=== PATIENT | male | born 1955 | race Caucasian/White ===

== ENCOUNTER → 2022-09-14 | Outpatient (CLI) | payer BC ==
--- NOTE | 2022-09-16 09:38 | MR ---
EXAMINATION TYPE: MR shoulder RT wo con DATE OF EXAM: 09/14/2022 8:52 PM COMPARISON: NONE HISTORY: RT SHOULDER/ARM PAIN AND WEAKNESS X 2 MONTHS TECHNIQUE: Multiplanar multispin echo imaging of the right shoulder was performed. FINDINGS: Rotator cuff : There is thickening and heterogeneity of the supraspinatus tendon with undersurface an d intrasubstance partial tear is seen. No evidence for full-thickness tear. There is also increased s ignal noted at the critical zone compatible with partial intrasubstance tear. There is increased sign al at the musculotendinous junction of the subscapularis. Correlate for strain. Bursa: No bursal effusion or thickening is seen. Musculature: There is no muscular tear, contusion, or atrophy. Acromioclavicular joint : Moderate AC joint arthropathy resulting in a degree of impingement. Small s ubacromial spur. Osseous structures : There are no fractures or regions of abnormal bone marrow signal intensity. Long biceps tendon : The biceps tendon is normally situated within the bicipital groove. No complete or partial biceps tendon tear is present. Glenohumeral Joint fluid : There is no glenohumeral joint effusion. Cartilage and Bone : No focal hyaline cartilage defects are noted. No Hill-Sachs, reverse Hill-Sachs, or bony Bankart lesions are seen. Labrum : There are no SLAP or soft tissue Bankart lesions. No paralabral cysts are seen. OTHER FINDINGS : Mild cystic degenerative change greater humeral tuberosity. IMPRESSION: 1. Chronic tendinopathy supraspinatus tendon with areas of intrasubstance and undersurface partial te ars. No evidence for full-thickness tear. 2.There is increased signal at the musculotendinous junction of the subscapularis. Correlate for stra in.
== END | disposition home or self-care (01) ==
LOC: RADMRIMAIN 19:34
PROVIDERS: ATTEND Orthopaedic Surgery
DX: M75.111 Incomplete rotator cuff tear or rupture of right shoulder, not specified as traumatic (principal)

== ENCOUNTER → 2023-12-26 | Outpatient (CLI) | payer MEDICARE, BC ==
--- NOTE | 2023-12-28 12:49 | MR ---
EXAMINATION TYPE: MR shoulder LT wo con DATE OF EXAM: 12/26/2023 COMPARISON: None HISTORY: left shoulder pain TECHNIQUE: Multiplanar, multisequence imaging of the left shoulder is performed without contrast. FINDINGS: There is moderate osteoarthritic change of the AC joints and no significant degeneration of the gleno humeral joint. There is diffuse abnormal signal intensity within the infraspinatus muscle at the musculotendinous ju nction consistent with intrasubstance tearing but no retraction. There is a tiny rim rent tear of the supraspinatus tendon and mild diffuse abnormal signal intensity in the more proximal aspect of the t endon consistent with tendinosis or partial tearing. The subscapularis tendon is intact. The biceps tendon is normal in signal intensity and position within the bicipital groove but there is a tear at the insertion of the biceps anchor on the superior aspect of the labrum consistent with a SLAP injury. There is abnormal signal intensity within the medial glenohumeral ligament and anterior cartilaginous labrum consistent with tears. There is mild subdeltoid bursitis. IMPRESSION: 1. Rotator cuff tears involving the infraspinatus and supraspinatus tendons without retraction. 2. SLAP injury of the superior labrum. 3. Tears of the anterior cartilaginous labrum and middle glenohumeral ligament. 4. Moderate osteoarthritic degeneration of the AC joint [facility], , 12/28/2023 12:47 PM
== END | disposition home or self-care (01) ==
LOC: RADMRIMAIN 19:00
PROVIDERS: ATTEND Orthopaedic Surgery
DX: M25.512 Pain in left shoulder

== ENCOUNTER → 2024-01-08 | Outpatient (CLI) | payer MEDICARE, BC ==
[2024-01-08 21:03] LABS: Aspergillus fumagatus IgE <0.10 kU/L; Birch IgE <0.10 kU/L; Cat Epith & Dander IgE <0.10 kU/L; Cladosporian herbarum IgE <0.10 kU/L; Clam IgE <0.10 kU/L; Cockroach IgE <0.10 kU/L; Codfish IgE <0.10 kU/L; Dermato. farinae IgE <0.10 kU/L; Dog Dander IgE 0.26 kU/L; Egg White IgE <0.10 kU/L; Elm IgE <0.10 kU/L; Maple (Box Elder) IgE <0.10 kU/L; Oak IgE <0.10 kU/L; Peanut IgE <0.10 kU/L; Ragweed,Common IgE <0.10 kU/L; Red Top (Bentgrass) IgE <0.10 kU/L; Scallop IgE <0.10 kU/L; Shrimp IgE <0.10 kU/L; Soybean IgE <0.10 kU/L; Walnut IgE (Food) <0.10 kU/L
== END | disposition home or self-care (01) ==
LOC: LABWHC1 14:25
PROVIDERS: ATTEND Internal Medicine Critical Care Medicine
DX: J45.50 Severe persistent asthma, uncomplicated (principal)
CPT/HCPCS: 36415; 82785; 85008; 86003

== ENCOUNTER → 2024-01-26 | Outpatient (CLI) | payer MEDICARE, BC ==
[2024-01-26 15:00] LABS: Basophils # (A) 0.04 X 10*3/uL (0.00-0.10); Basophils % (A) 0.4 %; Eosinophils # (A) 0.26 X 10*3/uL (0.04-0.35); Eosinophils % (A) 2.9 %; HCT 45.7 % (39.6-50.0); HGB 15.2 g/dL (13.0-17.0); Lymphocytes # (A) 1.85 X 10*3/uL (0.90-5.00); Lymphocytes % (A) 20.5 %; MCHC 33.3 g/dL (32.0-37.0); MCV 93.1 FL (80.0-97.0); Mean Platelet Volume 11.4 FL (9.5-12.2); Monocytes # (A) 0.81 X 10*3/uL (0.20-1.00); NRBC Per 100 WBC 0 X 10*3/uL (0.00-0.01); Neutrophils # (A) 6.03 X 10*3/uL (1.80-7.70); Neutrophils % (A) 66.6 %; Platelet Count 225 X 10*3/uL (140-440); RBC 4.91 X 10*6/uL (4.40-5.60); RDW 13.7 % (11.5-14.5); WBC 9.04 X 10*3/uL (4.50-10.00)
[2024-01-26 16:21] LABS: Anion Gap 9.7 mmol/L (4.00-12.00); Carbon Dioxide 24.3 mmol/L (21.6-31.8); Potassium 4.5 mmol/L (3.5-5.5)
== END | disposition home or self-care (01) ==
LOC: LABPAT 08:08
PROVIDERS: ATTEND Orthopaedic Surgery
DX: Z01.818 Encounter for other preprocedural examination (principal); M75.42 Impingement syndrome of left shoulder
CPT/HCPCS: 80051; 85025; 93005

== ENCOUNTER 2024-02-08 07:35 | Day surgery (SDC) | payer MEDICARE, BC ==
--- NOTE | 2024-02-08 00:53 | HP ---
HISTORY AND PHYSICAL DATE OF SURGERY: 02/08/2024. HISTORY OF PRESENT ILLNESS: Joon Cervantes is a 68-year-old gentleman seen with progressive left shoulder pain. We discussed options regarding treatment. He elected to proceed with left shoulder arthroscopy. Consent regarding the procedure was obtained. PAST MEDICAL HISTORY: Hypertension, hyperlipidemia, asthma. PAST SURGICAL HISTORY: Sinus surgery. DAILY MEDICATIONS: 1. Loratadine. 2. Simvastatin. 3. Singulair. 4. Tylenol. ALLERGIES: Aspirin, ibuprofen, Levaquin, neomycin, Zithromax. SOCIAL HISTORY: Denies tobacco use. PHYSICAL EVALUATION OF THE LEFT SHOULDER: Flexion is 160 degrees. Abduction is 130 degrees. External rotation is 30 degrees with weakness. He has tenderness along the anterolateral acromion and bicipital groove along the rotator cuff tendon area and long head biceps tendon. His impingement sign is positive at 90 degrees. Cross-body adduction sign is positive. Distal neurovascular exam is intact. IMAGING STUDIES: Radiographs of the left shoulder revealed a type 2 acromion evidence for acromioclavicular joint osteoarthritis. MRI of left shoulder revealed rotator cuff tear, labral tear, acromioclavicular joint osteoarthritis. IMPRESSION: 1. Left shoulder impingement with rotator cuff tear. 2. Left shoulder acromioclavicular joint osteoarthritis. 3. Left shoulder bicipital tendinitis. 4. Left shoulder labral tear. 5. Hyperlipidemia. 6. Asthma. PLAN: Left shoulder arthroscopy with subacromial decompression, arthroscopic rotator cuff repair, biceps tenodesis, Elicia, and debridement of labral tear. MMODL / IJN: [id number] /
[~2024-02-08 07:35] MED LIST: HYDROmorphone 0.5 MG/0.5 ML SYRINGE IVP PRN; LIDOCAINE 1% (10MG/ML) FOR IV START INTRADERMA PRN; droPERidol 5 MG/2 ML VIAL IVP ONE
[2024-02-08] MEDS: IV FLUID CONTINUATION 1,000 ML IV ONE (08:01)
[2024-02-08] MEDS: MIDAZOLAM 2 MG/2 ML VIAL IV ONE (08:25)
[2024-02-08 08:35] LABS: Glucose,Whole Blood 94 mg/dL (70-110)
[2024-02-08] MEDS: ONDANSETRON 4 MG/2 ML VIAL IVP ONE (08:46)
[2024-02-08] MEDS: DEXAMETHASONE SOD PHOSPHATE 4 MG/ML 1 ML VIAL IVP STA (08:47)
[2024-02-08] MEDS: LACTATED RINGERS 1,000 ML IV SCH (08:48)
[2024-02-08] MEDS ORDERED: DEXAMETHASONE SOD PHOSPHATE 4 MG/ML 1 ML VIAL ONE (09:20)
[2024-02-08] MEDS ORDERED: ePHEDrine 50 MG/ML 1 ML VIAL ONE (09:20)
[2024-02-08] MEDS ORDERED: PROPOFOL 10 MG/ML 20 ML VIAL IV ONE (09:20)
[2024-02-08] MEDS ORDERED: ROPIVACAINE 5 MG/ML 30 ML VIAL ONE (09:20)
[2024-02-08] MEDS ORDERED: LIDOCAINE 1% INJ 10MG/ML (20 ML MDV) ONE (09:20)
[2024-02-08] MEDS ORDERED: fentaNYL (PF) 50 MCG/ML 2 ML AMP ONE (09:20)
[2024-02-08] MEDS ORDERED: SUCCINYLCHOLINE CHLORIDE 200 MG/10 ML VIAL IV ONE (09:20)
[2024-02-08 10:52] VITALS: TEMP 97
--- NOTE | 2024-02-08 10:54 | P.OP ---
Date of Procedure: 02/08/24 Preoperative Diagnosis: Left shoulder impingement Postoperative Diagnosis: 1. Left shoulder rotator cuff tear 2. Left shoulder impingement 3. Left shoulder bicipital tendinitis 4. Left shoulder acromioclavicular joint osteoarthritis 5. Left shoulder superficial superior labral tear Procedure(s) Performed: 1. Left shoulder arthroscopic rotator cuff repair 2. Left shoulder arthroscopic subacromial decompression 3. Left shoulder arthroscopic biceps tenodesis 4. Left shoulder arthroscopic Elicia procedure 5. Left shoulder arthroscopic debridement labral tear Implants: 2Arthrex 4.75 swivel lock anchors Anesthesia: GETA, regional (Interscalene block) Surgeon: Tyrell Woo Station Operator #1: Sarkis Shaw Estimated Blood Loss (ml): 7 Pathology: none sent Condition: stable Disposition: PACU Indications for Procedure: 68-year-old patient seen with progressive left shoulder pain. After having treatment options discussed, he elected to proceed with arthroscopy. Operative Findings: See description of procedure Description of Procedure: Patient underwent an interscalene block by department of anesthesia. The patient was then taken to the operative suite. The patient underwent a general anesthetic by the department of anesthesia. The patient was placed into a lateral position and secured. There was appropriate padding of the bony prominence. Left shoulder was then prepped and draped in normal sterile orthopedic fashion. We placed the extremity in 10 pounds of longitudinal traction. A posterior incision was now made for a posterior working portal site. The trocar and cannula were inserted into the glenohumeral joint. Arthroscopy was initiated. Spinal needle was now inserted anteriorly, to ascertain the anterior working portal site. An incision was now made in that area, a trocar was inserted followed by a probe. There was superficial tearing of the superior labrum. There was hyperemia long head biceps tendon consistent with chronic bicipital tendinitis. There were mild grade I chondromalacia changes of the glenohumeral joint. I debrided out the superficial labral tear getting down to stable labral tissue. I now decided to proceed with arthroscopic biceps tenodesis. I placed a cannula through the anterior portal site. I passed a loop and tack type stitch through the biceps tendon with the assistance of Abimael BEASLEY. I now released the long head biceps tendon from the superior labral anchor. With the assistance of a Abimael BEASLEY punch hole at the interval for insertion of an anchor. The suture limb was passed through the eyelet of an Arthrex 4.75 swivel lock anchor. I placed the eyelet into the prepunch hole, held in position while Abimael BEASLEY tensioned the suture and deployed the anchor with good fixation noted. The residual suture limb was clipped. We had a stable appearing biceps tenodesis. Instruments were now removed from the glenohumeral joint. Utilizing the posterior working portal site, the trocar and cannula were inserted into the subacromial space. Arthroscopy initiated. I made an incision 2 fingerbreadths lateral to the acromion. I introduced my trocar followed by my ArthroCare ablator. I now began ablating thick subacromial bursal tissue, which exposed the undersurface of the anterior acromion. There was diminished subacromial space. There was a very prominent anterior acromion. A motorized bur was introduced and a subacromial decompression was performed. I also excised some osteophytes off the inferior aspect of the distal clavicle. The AC joint was visualized and noted to be fairly arthritic. The motorized bur was introduced in the anterior portal site and a Elicia procedure was performed without difficulty removing 8 mm of bone off the distal clavicle, decompressing the AC joint nicely. I turned my attention to the rotator cuff. There was a 1 cm rotator cuff tear. I debrided the margins getting down to stable tendon tissue. The defect/tear measured approximately 1.5 cm and was freely mobile over the footprint. I abraded the footprint with a motorized bur. With the assistance of Abimael BEASLEY now passed 3 everted mattress sutures through good bites of rotator cuff tendon. I punched a hole at the footprint area for insertion of an anchor. All 6 limbs of suture were passed through the eyelet of an Arthrex 4.75 swivel lock anchor. I placed the eyelet into the prepunch hole. I held it in position while Abimael BEASLEY tensioned all 6 limbs of suture and deployed the anchor with good fixation noted. All residual suture limbs were now clipped. We had good compression of the tendon along the entire footprint. Instruments now removed from the portal sites. All portal sites were approximated with nylon suture. Sterile dressings were applied followed by a shoulder sling. Sarkis BEASLEY assisted in this case. The patient was awakened, transferred to a bed, and taken to recovery in stable condition.
[2024-02-08 12:15] VITALS: RESP 18
[2024-02-08 12:26] VITALS: BP 146/78; PULSE 90
--- NOTE | 2024-02-09 07:18 | P.ANPRN ---
Procedure Note - Anesthesia - Nerve Block Performed Left Interscalene Single Time Out Performed: Yes Date of Procedure: 02/08/24 Procedure Start Time: Procedure Stop Time: Location of Patient: PreOp Indication: Acute Post-Operative Pain, Requested by Surgeon Sedation Type: Sedate with meaningful contact maintained Preparation: Sterile Prep Position: Supine Needle Types: Pajunk Needle Gauge: 21 Ultrasound used to visualize needle placement: Yes Ultrasound used to observe medication spread: Yes Blood Aspirated: No Pain Paresthesia on Injection Noted: No Resistance on Injection: Normal Image Stored and Saved: Yes Events: Uneventful and Well Tolerated (Ropivacaine 0.5% 20 cc plus dexamethasone 4 mg)
== END 2024-02-08 12:37 | disposition home or self-care (01) ==
LOC: OR 07:35
PROVIDERS: ATTEND Orthopaedic Surgery
DX: S43.492A Other sprain of left shoulder joint, initial encounter (principal); M75.102 Unspecified rotator cuff tear or rupture of left shoulder, not specified as traumatic; M75.22 Bicipital tendinitis, left shoulder; M19.012 Primary osteoarthritis, left shoulder; E78.5 Hyperlipidemia, unspecified; J45.909 Unspecified asthma, uncomplicated; I10 Essential (primary) hypertension; Z88.1 Allergy status to other antibiotic agents; Z88.8 Allergy status to other drugs, medicaments and biological substances; Z88.6 Allergy status to analgesic agent; Z79.02 Long term (current) use of antithrombotics/antiplatelets; Z79.899 Other long term (current) drug therapy; X58.XXXA Exposure to other specified factors, initial encounter
CPT/HCPCS: 64415; 29824; 29827; 29828; 29826; 29807; C1713 ×3; J2250; J0330; J1100; J0690; J2405; J2003; J3010; J2795; J2704